=== PATIENT | female | born 1945 | race Caucasian/White ===

== ENCOUNTER 2019-02-22 10:56 | Observation (INO) | payer MEDICARE ==
[~2019-02-22] VITALS: Ht 167.6 cm; Wt 77.3 kg
[2019-02-22] MEDS ORDERED: CLEOCIN HCL300 MG (11:08)
[2019-02-22] MEDS ORDERED: VERIPRED 220 MG/5 ML (11:08)
[2019-02-22] MEDS ORDERED: BAYER CHEWABLE81 MG PO (11:12)
[2019-02-22] MEDS ORDERED: OMEPRAZOLE20 M1 PO (11:12)
[2019-02-22 11:38] VITALS: BP 102/57
[2019-02-22 11:58] LABS: CALC OSMOLALITY 280 mosm/kg (275-300); CALCIUM 9.3 mg/dL (8.5-10.1); CARBON DIOXIDE 28.8 mmol/L (21.0-32.0); CHLORIDE - SERUM 104 mmol/L (98-107); CREATININE - SERUM 0.9 mg/dL (0.6-1.3); GLUCOSE 101 mg/dL (74-106); POTASSIUM - SERUM 4.3 mmol/L (3.5-5.1); SODIUM 140 mmol/L (136-145); UREA NITROGEN 17 mg/dL (7-18); eGFR NON AFRICAN AMERICAN 65 mL/min (90-120)
[2019-02-22 11:59] LABS: BASOPHILS 0.3 % (0-2); HEMATOCRIT 38.1 % (36.0-48.0); HEMOGLOBIN 12.4 g/dL (12-16); IMMATURE GRANULOCYTES 0.2 % (0-5); LYMPHOCYTES 38.4 % (15-50); MCH 27.8 pg (26.0-34.0); MCHC 32.5 g/dL (31.0-37.0); MCV 85.4 fL (80.0-100.0); MEAN PLATELET VOLUME 10.4 fL (7.4-10.4); MONOCYTES 8.3 % (2-11); NEUTROPHILS 51.8 % (40-80); RBC 4.46 10x6/uL (4.00-5.40); RDW 16.1 % (11.5-14.5)
[2019-02-22 12:05] LABS: PLATELET COUNT 342 10x3/uL (130-400)
[2019-02-22 12:07] LABS: APTT 24.9 SECONDS (22.8-39.4); INR 1.07 (0.85-1.17); PROTIME 13.4 SECONDS (11.6-15.0)
[2019-02-22 12:13] LABS: ALBUMIN 3.3 g/dL (3.4-5.0); ALKALINE PHOSPHATASE 103 U/L (46-116); ALT (SGPT) 164 U/L (10-68); CKMB 1.2 U/L (0.0-3.6); CREATINE KINASE 58 UL (21-215); PROTEIN - SERUM 6.9 g/dL (6.4-8.2); TROPONIN-I < 0.017 ng/mL (0.000-0.060)
[2019-02-22 13:31] LABS: CREATINE KINASE 60 UL (21-215)
[2019-02-22 13:32] LABS: TROPONIN-I < 0.017 ng/mL (0.000-0.060)
[2019-02-22 14:11] VITALS: BP 117/54
--- NOTE | 2019-02-22 14:21 | MORECARE ---
CASE MANAGEMENT DISCHARGE SUMMARY PATIENT: TUNDE SMITH UNIT: [id number] ADM DATE: 02/22/19 AGE: 74 : 45 SEX: F ROOM/BED: D.3380 AUTHOR: JAVIER FELDMAN PHYSICIAN: REFERRING PHYSICIAN: VIRGINIA ZIMMER MD DATE OF SERVICE: 02/22/19 Discharge Plan Patient Name: TUNDE SMITH Facility: [facility]:[place] : 1945 Planned Disposition: Anticipated Discharge Date: Discharge Date: Expected LOS: Initial Reviewer: [email or web address] Initial Review Date: 02/22/2019 Generated: 02/22/19 3:21 pm DCP- Discharge Planning Updated by [id number]: Angela Richter on 02/22/19 12:[address] CM met with patient to discuss initial discharge planning. Patient is in agreement to proceed with assessment with family members present. Patient is alert/oriented. Stairs/steps: None. PCP: Dr. Sood. Pharmacy: [facility]. HHS: None. DME: None. Patient gives permission to speak with family members present: Ana Cazares (dtr) [phone], Margy Reis (dtr) [phone], Reji Lindsaycker (g-son) [phone]. Emergency contact: Ana Cazares (dtr) [phone]. Independent ADL's: Yes, she still works. CM discussed the availability of HH, Rehab, DME services.Patient denies the need for additional services at this time and feels safe returning to previous environment. Patient denies being hospitalized within the past 30 days. Denies use of community resources [facility] [place]. Transportation at time of discharge: Ana Cazares or Margy Reis (dtrs). CM will assist on PRN basis with any DC needs. Coverage Notice Reviewer: [id number] Austin Richter Notice Issued Date-Time: 02/22/2019 13:15 Notice Type: Medicare Outpatient Observation Notice Notice Delivered To: Patient Relationship to Patient: Self Foaming Machine Operator Name: Tunde Smith Delivery Method: HAND - Hand Delivered Nataly Days: Prior Verbal Notification: Recipient Understood Notice: Yes Recipient Signature: Yes Med Rec Note Co-signed by Attending: Coverage Notice Comment: GRIFFITH delivered to and signed by patient. Original given to patient and placed on chart. Patient Name: TUNDE SMITH Page 50700 at 1421 All edits/amendments must be made on the electronic document DICTATION DATE: 02/22/191420 BOX CLOSING MACHINE OPERATOR: AMRITA 02/22/191420 RPT#: [id number] DC DATE: STATUS: ADM IN [facility] [address] [place] [address] END OF REPORT
--- NOTE | 2019-02-22 14:30 | MORECARE ---
CASE MANAGEMENT DISCHARGE SUMMARY PATIENT: TUNDE SMITH [place] UNIT: [id number] ADM DATE: 02/22/19 AGE: 74 : 45 SEX: F ROOM/BED: D.2910 AUTHOR: FRANCIA,DOC PHYSICIAN: REFERRING PHYSICIAN: VIRGINIA ZIMMER MD DATE OF SERVICE: 02/22/19 Discharge Plan Patient Name: TUNDE SMITH Facility: [facility]:[place] : 1945 Planned Disposition: Anticipated Discharge Date: Discharge Date: Expected LOS: Initial Reviewer: [id number] Initial Review Date: 02/22/2019 Generated: 02/22/19 3:29 pm DCP- Discharge Planning Updated by [email or web address]: Angela Richter on 02/22/19 12:[address] CM met with patient to discuss initial discharge planning. Patient is in agreement to proceed with assessment with family members present. Patient is alert/oriented. Stairs/steps: None. PCP: Dr. Sood. [email or web address]. HHS: None. DME: None. Patient gives permission to speak with family members present: Ana Cazares (dtr) [phone], Margy Reis (dtr) [phone], Reji Lindsaycker (g-son) [phone]. Emergency contact: Ana Rhodesvianney (dtr) [phone]. Independent ADL's: Yes, she still works. CM discussed the availability of HH, Rehab, DME services.Patient denies the need for additional services at this time and feels safe returning to previous environment. Patient denies being hospitalized within the past 30 days. 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 Transportation at time of discharge: Ana Cazares or Margy Reis (dtrs). CM will assist on PRN basis with any DC needs. DCPIA - Discharge Planning Initial Assessment Updated by [email or web address]: Angela Richter on 02/22/19 2:23 pm * Is the patient Alert and Oriented? Yes * How many steps to enter\exit or inside your home? * PCP Dr. Sood * [facility] * Preadmission Environment Home Alone * ADLs Independent * Equipment None * Other Equipment NA * List name and contact numbers for known caregivers / representatives who currently or will assist patient after discharge: Ana Rhodesvianeny (dtr) [phone] (dtr) [phone] Reji Muñoz (son) [phone] * Verbal permission to speak to the caregivers and representatives has been obtained from the patient. Yes * Community resources currently utilized None * Additional services required to return to the preadmission environment? No * Can the patient safely return to the preadmission environment? Yes * Has this patient been hospitalized within the prior 30 days at any hospital? No Coverage Notice Reviewer: [id number] Austin Richter Notice Issued Date-Time: 02/22/2019 13:15 Notice Type: Medicare Outpatient Observation Notice Notice Delivered To: Patient Relationship to Patient: Self Air Transport Professionals Name: Tunde Smith Delivery Method: HAND - Hand Delivered Nataly Days: Prior Verbal Notification: Recipient Understood Notice: Yes Recipient Signature: Yes Med Rec Note Co-signed by Attending: Coverage Notice Comment: GRIFFITH delivered to and signed by patient. Original given to patient and placed on chart. Last DP export: 02/22/19 1:21 Patient Name: TUNDE SMITH Page [id number] at 1430 All edits/amendments must be made on the electronic document DICTATION DATE: 02/22/191428 CELLOPHANE WORKER: AMRITA 02/22/191428 RPT#: [id number] DC DATE: STATUS: ADM IN [facility] [address] [place] [address] END OF REPORT
--- NOTE | 2019-02-22 14:46 | NUR ---
NEW EKG SENT WITH PT PACKET TO [facility]
--- NOTE | 2019-02-22 14:59 | NUR ---
RECEIVED PT TO ROOM 2121 VIA STRETCHER, ORIENTED PT TO ROOM AND CALL LIGHT. WILL ASSESS PT AND START PLAN OF CARE.
[2019-02-22 15:30] VITALS: BP 160/64; Ht 167.6 cm; Wt 77.3 kg
[2019-02-22 17:16] VITALS: BP 140/59
[2019-02-22] MEDS ORDERED: LOPRESSOR25 MG PO (17:42)
[2019-02-22] MEDS ORDERED: LEVOTHYROXINE50 MCG PO (17:44)
[2019-02-22] MEDS ORDERED: BENTYL10 MG PO (17:45)
--- NOTE | 2019-02-22 19:29 | NUR ---
EVENING ROUNDS COMPLETED. VSS, AAOX3, NO S/S OF DISTRESS. PT C/O PAIN ON HER BACK AND CHEST, STATES ITS A 06/15. DENIES NEED FOR PAIN CONTROL AT THIS TIME. FAMILY AT BEDSIDE. PT NPO AFTER MIDNIGHT. WILL CTM. CL WITHIN REACH.
[2019-02-22 19:31] LABS: CKMB 0.7 U/L (0.0-3.6); CREATINE KINASE 55 UL (21-215)
[2019-02-22 19:37] LABS: TROPONIN-I < 0.017 ng/mL (0.000-0.060)
[2019-02-22 20:00] VITALS: BP 118/56
[2019-02-23] VITALS: BP 110/46
[2019-02-23 01:58] LABS: CKMB 0.9 U/L (0.0-3.6); CREATINE KINASE 41 UL (21-215); TROPONIN-I < 0.017 ng/mL (0.000-0.060)
[2019-02-23 04:00] VITALS: BP 119/45
[2019-02-23 06:36] LABS: BASOPHILS 0.5 % (0-2); EOSINOPHILS 2.2 % (0-7); HEMATOCRIT 37.6 % (36.0-48.0); HEMOGLOBIN 12.1 g/dL (12-16); IMMATURE GRANULOCYTES 0.3 % (0-5); LYMPHOCYTES 39.5 % (15-50); MCH 27.6 pg (26.0-34.0); MCHC 32.2 g/dL (31.0-37.0); MCV 85.8 fL (80.0-100.0); MONOCYTES 10.1 % (2-11); NEUTROPHILS 47.4 % (40-80); PLATELET COUNT 312 10x3/uL (130-400); RBC 4.38 10x6/uL (4.00-5.40); RDW 16.5 % (11.5-14.5)
[2019-02-23 06:48] LABS: ANION GAP 7.6 mmol/L (8-16); CALCIUM 8.6 mg/dL (8.5-10.1); CARBON DIOXIDE 27.6 mmol/L (21.0-32.0); CREATININE - SERUM 0.9 mg/dL (0.6-1.3); POTASSIUM - SERUM 4.2 mmol/L (3.5-5.1)
[2019-02-23 06:49] LABS: WBC 6.4 10x3/uL (4.8-10.8)
[2019-02-23 08:26] LABS: APPEARANCE CLEAR (CLEAR); BILIRUBIN NEGATIVE (NEGATIVE); COLOR YELLOW (YELLOW); GLUCOSE NEGATIVE (NEGATIVE); KETONE NEGATIVE (NEGATIVE); NITRITE NEGATIVE (NEGATIVE); PROTEIN NEGATIVE (NEGATIVE); SPECIFIC GRAVITY 1.015 (1.005-1.020)
[2019-02-23 08:50] VITALS: BP 114/51
--- NOTE | 2019-02-23 14:10 | NUR ---
LYING QUIETLY WITH FAMILY AT BEDSIDE. DENIES ANY NEEDS. SR UP WITH CALL LIGHT IN REACH
[2019-02-23 14:17] VITALS: BP 125/62
[2019-02-23 16:00] VITALS: BP 118/58
[2019-02-23] MEDS ORDERED: LOPRESSOR25 MG PO (18:47)
[2019-02-23] MEDS ORDERED: NORVASC5 MG PO (18:47)
--- NOTE | 2019-02-23 19:34 | NUR ---
PATIENT READY FOR DC. WENT OVER DISCHARGE INSTRUCTION AND MEDICATIONS . REMOVED IV. TELEMETRY RETURNED. PATIENT ESCORTED OFF UNIT BY JAMES.
--- NOTE | 2019-02-24 16:56 | MORECARE ---
CASE MANAGEMENT DISCHARGE SUMMARY PATIENT: TUNDE SMITH [place] UNIT: [id number] ADM DATE: 02/22/19 AGE: 74 : 45 SEX: F ROOM/BED: D.0824 AUTHOR: FRANCIA,DOC PHYSICIAN: REFERRING PHYSICIAN: VIRGINIA ZIMMER MD DATE OF SERVICE: 02/24/19 Discharge Plan Patient Name: TUNDE SMITH Facility: [facility]:[place] : 1945 Planned Disposition: Home Anticipated Discharge Date: 02/23/19 Discharge Date: 02/23/2019 Expected LOS: 1 Initial Reviewer: [id number] Initial Review Date: 02/22/2019 Generated: 02/24/19 5:56 pm DCP- Discharge Planning Updated by [id number]: Angela Richter on 02/22/19 12:[address] CM met with patient to discuss initial discharge planning. Patient is in agreement to proceed with assessment with family members present. Patient is alert/oriented. Stairs/steps: None. PCP: Dr. Sood. Pharmacy: [facility]. HHS: None. DME: None. Patient gives permission to speak with family members present: Ana Cazares (dtr) [phone], Margy Reis (dtr) [phone], Reji Muñoz (g-son) [phone]. Emergency contact: Ana Cazares (dtr) [phone]. Independent ADL's: Yes, she still works. CM discussed the availability of HH, Rehab, DME services.Patient denies the need for additional services at this time and feels safe returning to previous environment. Patient denies being hospitalized within the past 30 days. Denies use of community resources EXTENSION EDUCATOR. Transportation at time of discharge: Ana Cazares or Margy Reis (dtrs). CM will assist on PRN basis with any DC needs. DCPIA - Discharge Planning Initial Assessment Updated by [email or web address]: Angela Richter on 02/22/19 2:23 pm * Is the patient Alert and Oriented? Yes * How many steps to enter\exit or inside your home? * PCP Dr. Sood * Pharmacy [facility] * Preadmission Environment Home Alone * ADLs Independent * Equipment None * Other Equipment NA * List name and contact numbers for known caregivers / representatives who currently or will assist patient after discharge: Ana Cazares (dtr) [phone] Margy Reis (dtr) [phone] Reji Muñoz (son) [phone] * Verbal permission to speak to the caregivers and representatives has been obtained from the patient. Yes * Community resources currently utilized None * Additional services required to return to the preadmission environment? No * Can the patient safely return to the preadmission environment? Yes * Has this patient been hospitalized within the prior 30 days at any hospital? No Coverage Notice Reviewer: [id number] Austin Richter Notice Issued Date-Time: 02/22/2019 13:15 Notice Type: Medicare Outpatient Observation Notice Notice Delivered To: Patient Relationship to Patient: Self Shredding Machine Operator Name: Tunde Smith Delivery Method: HAND - Hand Delivered Nataly Days: Prior Verbal Notification: Recipient Understood Notice: Yes Recipient Signature: Yes Med Rec Note Co-signed by Attending: Coverage Notice Comment: GRIFFITH delivered to and signed by patient. Original given to patient and placed on chart. Last DP export: 02/22/19 1:30 Patient Name: TUNDE SMITH Page [phone] at 1656 All edits/amendments must be made on the electronic document DICTATION DATE: 02/24/191655 CASTING TESTER: AMRITA 02/24/191655 RPT#: [id number] DC DATE:02/23/19 STATUS: DIS IN [facility] [address] [place] [address] END OF REPORT
== END 2019-02-23 19:36 | disposition home or self-care (01) ==
LOC: D.ER 10:56 → D.M2 12:35 → OBSVTIME 13:55 → D.M2 02-23 19:36
PROVIDERS: Emergency Medicine; ADMIT Internal Medicine Nephrology; ATTEND Internal Medicine Nephrology
DX: I20.9 Angina pectoris, unspecified (principal); I10 Essential (primary) hypertension; K21.9 Gastro-esophageal reflux disease without esophagitis; E03.9 Hypothyroidism, unspecified; M19.90 Unspecified osteoarthritis, unspecified site; R07.9 Chest pain, unspecified

== ENCOUNTER 2019-03-12 17:42 | Inpatient (IN) | payer MEDICARE ==
[~2019-03-12] VITALS: Ht 167.6 cm; Wt 76.1 kg
[~2019-03-12 17:42] MED LIST: BAYER CHEWABLE81 MG PO; BENTYL10 MG PO; CLEOCIN HCL300 MG; LEVOTHYROXINE50 MCG PO; LOPRESSOR25 MG PO; NORVASC5 MG PO; OMEPRAZOLE20 M1 PO; VERIPRED 220 MG/5 ML
--- NOTE | 2019-03-12 18:00 | NUR ---
PT TO RADIOLOGY
[2019-03-12 18:13] LABS: BASOPHILS 0.4 % (0-2); EOSINOPHILS 1.8 % (0-7); HEMATOCRIT 39.2 % (36.0-48.0); HEMOGLOBIN 13.1 g/dL (12-16); IMMATURE GRANULOCYTES 0.4 % (0-5); MCH 28.3 pg (26.0-34.0); MCHC 33.4 g/dL (31.0-37.0); MCV 84.7 fL (80.0-100.0); MEAN PLATELET VOLUME 10.6 fL (7.4-10.4); MONOCYTES 9.6 % (2-11); NEUTROPHILS 63.8 % (40-80); PLATELET COUNT 330 10x3/uL (130-400); RBC 4.63 10x6/uL (4.00-5.40); RDW 16.2 % (11.5-14.5); WBC 10.9 10x3/uL (4.8-10.8)
[2019-03-12 18:17] LABS: APPEARANCE CLEAR (CLEAR); COLOR DARK YELLOW (YELLOW)
[2019-03-12 18:18] LABS: BILIRUBIN NEGATIVE (NEGATIVE); GLUCOSE NEGATIVE (NEGATIVE); KETONE NEGATIVE (NEGATIVE); NITRITE NEGATIVE (NEGATIVE); PROTEIN NEGATIVE (NEGATIVE); UROBILINOGEN NORMAL (NORMAL)
[2019-03-12 18:21] LABS: ANION GAP 13.7 mmol/L (8-16); CREATININE - SERUM 0.8 mg/dL (0.6-1.3); POTASSIUM - SERUM 3.7 mmol/L (3.5-5.1)
[2019-03-12 18:23] LABS: ALBUMIN 3.1 g/dL (3.4-5.0); BILIRUBIN - TOTAL 0.41 mg/dL (0.2-1.3); PROTEIN - SERUM 7.7 g/dL (6.4-8.2)
--- NOTE | 2019-03-12 18:27 | NUR ---
PT RETURNED FROM RADIOLOGY.
[2019-03-12] MEDS ORDERED: PROMETHAZINE W473 ML PO (18:51)
[2019-03-12] MEDS ORDERED: LEVOFLOXACIN500 MG PO (18:51)
[2019-03-12] MEDS ORDERED: FLAGYL500 MG PO (18:51)
--- NOTE | 2019-03-12 19:06 | NUR ---
PT RESTING ON BED. PT FAMILY AT BEDSIDE. PT AND FAMILY UPDATED ON PLAN OF CARE.
--- NOTE | 2019-03-12 20:34 | NUR ---
LEVAQUIN INFUSION COMPLETE. PT C/O NAUSEA WHEN SITTING UP IN BED. PT CONSIDERING ADMISSION AT THIS TIME OPPOSED TO DC HOME. PT CHART GIVEN TO CL BENITO.
[2019-03-12 20:36] VITALS: BP 129/68
--- NOTE | 2019-03-12 22:16 | NUR ---
RECEIVED FROM ER,A&O, IV-20G. R.WRIST-SL, PLACED OS LIST FOR TELEMTRY, MEDS AND HISTORY COMPLETE, DAUGHTER AT BEDSIDE, BED IS LOW, SRX2, CALL LIGHT IN REACH, WILL CONTINUE PLAN OF CARE
[2019-03-12] MEDS ORDERED: LOPRESSOR25 MG (22:19)
[2019-03-12 22:58] VITALS: BP 137/59; BMI 26.3
[2019-03-13] VITALS: BP 108/57
[2019-03-13 04:00] VITALS: BP 108/57
--- NOTE | 2019-03-13 04:30 | NUR ---
ADMISSION ASSESSMENT COMPLETED. PLAN OF CARE INITIATED. CALL LIGHT IN REACH.
[2019-03-13 05:45] LABS: BASOPHILS 0.1 % (0-2); EOSINOPHILS 3.4 % (0-7); HEMATOCRIT 37.9 % (36.0-48.0); HEMOGLOBIN 12.4 g/dL (12-16); IMMATURE GRANULOCYTES 0.4 % (0-5); LYMPHOCYTES 27.7 % (15-50); MCHC 32.7 g/dL (31.0-37.0); MCV 85.6 fL (80.0-100.0); MEAN PLATELET VOLUME 10.4 fL (7.4-10.4); MONOCYTES 9.1 % (2-11); NEUTROPHILS 59.3 % (40-80); RBC 4.43 10x6/uL (4.00-5.40); RDW 16.6 % (11.5-14.5)
[2019-03-13 06:09] LABS: PLATELET COUNT 263 10x3/uL (130-400); WBC 7.9 10x3/uL (4.8-10.8)
[2019-03-13 06:19] LABS: ALBUMIN 2.9 g/dL (3.4-5.0); ANION GAP 12.9 mmol/L (8-16); BILIRUBIN - TOTAL 0.42 mg/dL (0.2-1.3); CALCIUM 9.1 mg/dL (8.5-10.1); CARBON DIOXIDE 27.2 mmol/L (21.0-32.0); CREATININE - SERUM 0.8 mg/dL (0.6-1.3); PHOSPHOROUS 3.3 mg/dL (2.5-4.9); POTASSIUM - SERUM 4.1 mmol/L (3.5-5.1); PROTEIN - SERUM 7.1 g/dL (6.4-8.2)
--- NOTE | 2019-03-13 07:36 | NUR ---
ALERT AND ORIENTED. RIGHT WRIST SL. UP WITH ASSIST. DAUGHTER AT BEDSIDE. NO NEEDS VOICED. WILL MONITOR
[2019-03-13 08:00] VITALS: BP 127/73
[2019-03-13 12:00] VITALS: BP 122/68
[2019-03-13 14:15] VITALS: Ht 167.6 cm; Wt 76.1 kg
[2019-03-13 16:00] VITALS: BP 118/59
[2019-03-13 20:41] VITALS: BP 128/62
[2019-03-14 00:35] VITALS: BP 104/57
[2019-03-14 04:00] VITALS: BP 118/56
[2019-03-14 04:57] LABS: BASOPHILS 0.6 % (0-2); EOSINOPHILS 4.4 % (0-7); HEMOGLOBIN 11.6 g/dL (12-16); IMMATURE GRANULOCYTES 0.2 % (0-5); MCH 27.7 pg (26.0-34.0); MCHC 32.2 g/dL (31.0-37.0); MCV 85.9 fL (80.0-100.0); MEAN PLATELET VOLUME 10.4 fL (7.4-10.4); MONOCYTES 11.6 % (2-11); NEUTROPHILS 45.2 % (40-80); PLATELET COUNT 253 10x3/uL (130-400); RBC 4.19 10x6/uL (4.00-5.40); RDW 16.7 % (11.5-14.5)
[2019-03-14 05:18] LABS: ALBUMIN 2.6 g/dL (3.4-5.0); ANION GAP 11.4 mmol/L (8-16); BILIRUBIN - TOTAL 0.22 mg/dL (0.2-1.3); CALCIUM 8.8 mg/dL (8.5-10.1); CARBON DIOXIDE 27.7 mmol/L (21.0-32.0); CREATININE - SERUM 0.8 mg/dL (0.6-1.3); POTASSIUM - SERUM 4.1 mmol/L (3.5-5.1); PROTEIN - SERUM 6.3 g/dL (6.4-8.2)
--- NOTE | 2019-03-14 07:26 | NUR ---
ASSESSMENT COMPLETED. ALERT AND ORIENTED. RIGHT WRIST IV AT KVO. DENIES ANY NEEDS. WILL MONITOR. DAUGHTER AT BEDSIDE.
[2019-03-14 10:33] VITALS: BP 112/66
--- NOTE | 2019-03-14 11:23 | NUR ---
I have reviewed this patient and I concur with the Shift Assessment completed by the Licensed Practical Nurse today this shift.
--- NOTE | 2019-03-14 13:42 | NUR ---
Nutrition Follow-up: Tolerated clear liquids this AM. Noted now advanced to full liquids. Denies N/V. Reports BMs still loose but improved. Diet: Full liquids Wt: 170.8# (03/14) Labs noted: Alb 2.6 Meds noted: Zofran -Rec continue to ADAT as medically feasible. -Monitor wt; noted daily wts ordered. -Provided education on low fiber/high fiber diet; pt v/u. -RD following.
[2019-03-14 15:12] VITALS: BP 112/66
[2019-03-14 20:00] VITALS: BP 121/61
[2019-03-15] VITALS: BP 120/65
--- NOTE | 2019-03-15 02:38 | NUR ---
I have reviewed this patient and I concur with the Shift Assessment completed by the Licensed Practical Nurse today this shift.
[2019-03-15 05:03] VITALS: BP 133/68
[2019-03-15 07:36] LABS: BASOPHILS 0.4 % (0-2); EOSINOPHILS 4.4 % (0-7); HEMATOCRIT 36.9 % (36.0-48.0); IMMATURE GRANULOCYTES 0.4 % (0-5); MCH 27.8 pg (26.0-34.0); MCHC 32.5 g/dL (31.0-37.0); MCV 85.4 fL (80.0-100.0); MEAN PLATELET VOLUME 10.5 fL (7.4-10.4); NEUTROPHILS 52.8 % (40-80); PLATELET COUNT 285 10x3/uL (130-400); RBC 4.32 10x6/uL (4.00-5.40); RDW 16.7 % (11.5-14.5); WBC 4.7 10x3/uL (4.8-10.8)
--- NOTE | 2019-03-15 07:38 | NUR ---
REPORT RECEIVED. WILL CONTINUE WITH POC. PT CURRENTLY LYING SEMI FOWLERS. CALL LIGHT W/I REACH. PT IS AAO AND UP AD ZI. RR EVEN AND UNLABORED ON RA. NS INFUSING @KVO VIA L.FOR PIV. NO S/S OF DISTRESS NOTED. PT DENIES ANY NEEDS. WILL CTM.
[2019-03-15 08:00] VITALS: BP 135/75
[2019-03-15 08:02] LABS: ALBUMIN 2.6 g/dL (3.4-5.0); ANION GAP 11.3 mmol/L (8-16); BILIRUBIN - TOTAL 0.23 mg/dL (0.2-1.3); CALCIUM 8.8 mg/dL (8.5-10.1); CARBON DIOXIDE 26.7 mmol/L (21.0-32.0); CREATININE - SERUM 0.8 mg/dL (0.6-1.3); MAGNESIUM - SERUM 1.9 mg/dL (1.8-2.4); PROTEIN - SERUM 6.5 g/dL (6.4-8.2)
[2019-03-15] MEDS ORDERED: LEVAQUIN750 MG PO (10:54)
[2019-03-15] MEDS ORDERED: FLAGYL500 MG PO (10:54)
--- NOTE | 2019-03-15 11:16 | MORECARE ---
CASE MANAGEMENT DISCHARGE SUMMARY PATIENT: TUNDE MCLAUGHLIN UNIT: [id number] ADM DATE: 03/12/19 AGE: 74 : 45 SEX: F ROOM/BED: D.8504 AUTHOR: JAVIER FELDMAN PHYSICIAN: REFERRING PHYSICIAN: TED HAMILTON MD DATE OF SERVICE: 03/15/19 Discharge Plan Patient Name: TUNDE MCLAUGHLIN [facility] [facility] 1945 Planned Disposition: Home or Self Care Anticipated Discharge Date: Discharge Date: Expected LOS: Initial Reviewer: [email or web address] Initial Review Date: 03/15/2019 Generated: 03/15/19 12:16 pm Patient Name: TUNDE MCLAUGHLIN Page [id number] at 1116 All edits/amendments must be made on the electronic document DICTATION DATE: 03/15/19 1116 WARP STARTER: AMRITA 03/15/19 1116 RPT#: [id number] DC DATE: STATUS: ADM IN [facility] [address] [place] [address] END OF REPORT
--- NOTE | 2019-03-15 11:24 | MORECARE ---
CASE MANAGEMENT DISCHARGE SUMMARY PATIENT: TUNDE MCLAUGHLIN UNIT: [id number] ADM DATE: 03/12/19 AGE: 74 : 45 SEX: F ROOM/BED: D.3659 AUTHOR: JAVIER FELDMAN PHYSICIAN: REFERRING PHYSICIAN: TED HAMILTON MD DATE OF SERVICE: 03/15/19 Discharge Plan Patient Name: TUNDE MCLAUGHLIN Facility: [facility]:[place] : 1945 Planned Disposition: Home or Self Care Anticipated Discharge Date: Discharge Date: Expected LOS: Initial Reviewer: [id number] Initial Review Date: 03/15/2019 Generated: 03/15/19 12:23 pm Comments DCP- Discharge Planning Updated by [id number]: Lita Perea on 03/15/19 10:[address] Patient Name: TUNDE MCLAUGHLIN Admission Status: ER Accout number: [id number] Admission Date: 03-12-2019 : 1945 Admission Diagnosis: Attending: TED HAMILTON Current LOS: 3 Anticipated DC Date: Planned Disposition: Home or Self Care Primary Insurance: [employer] ADV Discharge Planning Comments: M MET WITH PATIENT AFTER OBTAINING VERBAL CONSENT. STATES PLANS TO DC TO HOME TODAY. DENIES NEEDS FOR HH, REHAB OR EQUIPMENT. HAS FAMILY MEMBER TO BARREL CLEANER AT DISCHARGE. Literacy Coordinator: Lita Preea DCPIA - Discharge Planning Initial Assessment Updated by [email or web address]: Lita Perea on 03/15/19 11:18 am * Is the patient Alert and Oriented? Yes * PCP SANTOS * Pharmacy [facility] [address] * Preadmission Environment Home Alone * ADLs Independent * Other Equipment NONE * Additional services required to return to the preadmission environment? No * Can the patient safely return to the preadmission environment? Yes * Has this patient been hospitalized within the prior 30 days at any hospital? Yes Coverage Notice Reviewer: [email or web address] - Lita Perea Notice Issued Date-Time: 03/15/2019 11:21 Notice Type: IM Discharge Notice Notice Delivered To: Patient Relationship to Patient: Test Driver Name: Delivery Method: HAND - Hand Delivered Nataly Days: Prior Verbal Notification: Recipient Understood Notice: Yes Recipient Signature: Yes Med Rec Note Co-signed by Attending: Coverage Notice Comment: Last DP export: 03/15/19 10:16 am Patient Name: TUNDE MCLAUGHLIN Page 13508 at 1124 All edits/amendments must be made on the electronic document DICTATION DATE: 03/15/191122 ENGINE WATCHMAN: AMRITA 03/15/191122 RPT#: [id number] DC DATE: STATUS: ADM IN [facility] [address] [place] [address] END OF REPORT
[2019-03-15 12:23] VITALS: BP 148/79
--- NOTE | 2019-03-15 13:32 | NUR ---
PT DISCHARGED HOME VIA WHEELCHAIR WITH FAMILY. PIV REMOVED WITH CATHETER TIP FULLY INTACT. PT SIGNED PROPER DISCHARGE INSTRUCTIONS AND REMOVED ALL VALUABLES FROM THE ROOM.
--- NOTE | 2019-03-16 09:24 | MORECARE ---
CASE MANAGEMENT DISCHARGE SUMMARY PATIENT: TUNDE MCLAUGHLIN UNIT: [id number] ADM DATE: 03/12/19 AGE: 74 : 45 SEX: F ROOM/BED: D.5976 AUTHOR: JAVIER FELDMAN PHYSICIAN: REFERRING PHYSICIAN: TED HAMILTON MD DATE OF SERVICE: 03/16/19 Discharge Plan Patient Name: TUNDE MCLAUGHLIN Facility: [facility]:[place] : 1945 Planned Disposition: Home or Self Care Anticipated Discharge Date: 03/15/19 Discharge Date: 03/15/2019 Expected LOS: 3 Initial Reviewer: [email or web address] Initial Review Date: 03/15/2019 Generated: 03/16/19 10:24 am Comments DCP- Discharge Planning Updated by [email or web address]: Lita Perea on 03/15/19 10:[address] Patient Name: TUNDE MCLAUGHLIN Admission Status: ER Accout number: [id number] Admission Date: 03-12-2019 : 1945 Admission Diagnosis: Attending: TED HAMILTON Current LOS: 3 Anticipated DC Date: Planned Disposition: Home or Self Care Primary Insurance: [employer]ARE ADV Discharge Planning Comments: M MET WITH PATIENT AFTER OBTAINING VERBAL CONSENT. STATES PLANS TO DC TO HOME TODAY. DENIES NEEDS FOR HH, REHAB OR EQUIPMENT. HAS FAMILY MEMBER TO TALENT COORDINATOR AT DISCHARGE. Hog Sawyer: Lita Perea DCPIA - Discharge Planning Initial Assessment Updated by [email or web address]: Lita Perea on 03/15/19 11:18 am * Is the patient Alert and Oriented? Yes * PCP SANTOS * Pharmacy [facility] [address] * Preadmission Environment Home Alone * ADLs Independent * Other Equipment NONE * Additional services required to return to the preadmission environment? No * Can the patient safely return to the preadmission environment? Yes * Has this patient been hospitalized within the prior 30 days at any hospital? Yes Coverage Notice Reviewer: [id number] - Lita Perea Notice Issued Date-Time: 03/15/2019 11:21 Notice Type: IM Discharge Notice Notice Delivered To: Patient Relationship to Patient: Rod Drawer Name: Delivery Method: HAND - Hand Delivered Nataly Days: Prior Verbal Notification: Recipient Understood Notice: Yes Recipient Signature: Yes Med Rec Note Co-signed by Attending: Coverage Notice Comment: Last DP export: 03/15/19 10:24 am Patient Name: TUNDE MCLAUGHLIN Page 70258 at 0924 All edits/amendments must be made on the electronic document DICTATION DATE: 03/16/19923 BLAST HOLE DRILLER: AMRITA 03/16/19923 RPT#: [id number] DC DATE:03/15/19 STATUS: DIS IN [facility] [address] [place] [address] END OF REPORT
== END 2019-03-15 13:33 | disposition home or self-care (01) | DRG 392 ==
LOC: D.ER 17:42 → D.M2 20:52
PROVIDERS: Family Medicine; ADMIT Emergency Medicine; ATTEND Emergency Medicine
DX: K57.92 Diverticulitis of intestine, part unspecified, without perforation or abscess without bleeding (principal); E87.1 Hypo-osmolality and hyponatremia; I10 Essential (primary) hypertension; E03.9 Hypothyroidism, unspecified; K21.9 Gastro-esophageal reflux disease without esophagitis; M19.90 Unspecified osteoarthritis, unspecified site